=== PATIENT | female | born 1950 ===

== ENCOUNTER → 2016-04-11 | Outpatient (CLI) | payer MEDICARE ==
[~2016-04-11] MED LIST: ACTOPLUS MET 11 EACH PO; ALBUTEROL2.5 MG/31 INH; ALDACTONE25 MG PO; ALIGN4 MG PO; AUGMENTIN500 MG PO; BENTYL10 MG PO; CARAFATE SU100 MG/ML PO; CARAFATE1 GM PO; CELEBREX200 MG PO; CLARITIN D 24HR1 TAB PO; COMPAZINE10 MG PO; CREON 121 CAP PO; DIFLUCAN100 MG PO; DIFLUCAN150 MG PO; FISH OIL 1,0001 EAC1 PO; FLAGYL500 MG PO; FLONASE 50 MCG/16 GM NOSE; HUMULIN R500 UNIT/1 SUB-Q; HYDROCODON-ACE1 EAC4 PO; K-TAB 10MEQ10 MEQ PO; LANTUS (IN100 UNIT/M SUB-Q; LASIX40 MG PO; LEVOTHYROXINE100 MCG PO; LIPITOR80 MG PO; LOPRESSOR25 MG PO; LYRICA 50MG CAP50 MG PO; METFORMIN HCL1000 M1 PO; MUCINEX DM ER1 EAC1 PO; MYCOSTATIN CREA30 GM TOP; NOVOLOG FL100 UNIT/1 SUB-Q; NYSTATIN1 EAC1 TOP; OS-CAL 250 MG+D1 TAB PO; OSCAL + D500 MG PO; PROTONIX40 MG PO; SINGULAIR10 MG PO; SYMBICORT 16010.2 GM INH; TERAZOL TOP; TOUJEO SOL300 UNIT/1 SUB-Q; TRIAMCINOLONE454 GM TOP; TYLENOL325 MG PO; VENTOLIN HFA8 GM INH; VITAMIN B-121000 MCG PO; VITAMIN B-122000 MC1 PO; VITAMIN D-40400 UNIT PO; ZESTRIL2.5 MG PO; ZOFRAN ODT 4 MG4 MG PO; [UNRECOGNIZED DRUG - CODE] PO
== END | disposition disaster alternative care site (69) ==
LOC: GLAB 14:34
DX: R19.7 Diarrhea, unspecified (principal)

== ENCOUNTER 2016-04-18 19:49 | Inpatient (IN) | payer MEDICARE ==
[~2016-04-18] VITALS: Ht 144.8 cm; Wt 135.0 kg
--- NOTE | ~2016-04-18 | HP ---
PATIENT'S NAME: NAV POOL [facility] AGE: 66 Y [address] ROOM: [address] [place], [place] [address] LOCATION: [facility] [place] ADMIT DATE: 04/18/2016 History & Physical DISCHARGE DATE: FAMILY PHYSICIAN: Priscilla Sawant MD ATTENDING PHYSICIAN: Priscilla Sawant DATE OF SERVICE: CHIEF COMPLAINT: "I am weak and has had diarrhea." HISTORY OF PRESENT ILLNESS: Ms. Pool is an extremely complex 66-year-old female with past medical history significant for extremely insulin-resistant diabetes mellitus, type 2; super morbid obesity; chronic pain; and multiple repeat infections including C. difficile, among several others, who presents as an admission to the [facility] from the [facility] Emergency Department for weakness and diarrhea. The patient was in her usual state of health when she began experiencing diarrhea approximately for the last week or so. She had called Dr. Moeller, on-call, last weekend and I had explained the situation to him and he ordered two stool studies. She did bring a sample over, but unfortunately it was outside the time range and which they can run it successfully for C. difficile. Apparently, it was negative at that time. The patient has had continued loose stools. She states it is very similar to when she had C. difficile before. She has also felt progressively more weak. She has been weak for several months, but things has gotten worse over the last week or two. She had a C. difficile episode of which she was hospitalized in October 2015. She just progressively has gotten worse and decided to present to the emergency department for further evaluation and management. Upon reaching the Emergency Department, the patient had a blood pressure of 174/117, pulse 99, respirations 24, temperature 98.0, and oxygen saturation is 98% on room air. She is complaining of pain in the jaw as well as her knee. No real abdominal pain. She did have some cramping at that time. She had a number of tests performed at that time including a chest x-ray which showed vascular congestion likely reflecting interstitial edema as well as chronic fibrotic changes and scarring. She had implant of vascular access catheter and that was about it. She also had a CMS performed that only showed a glucose of 246. Albumin of 3.0, AST that was elevated at 57, and a CBC overall was really unremarkable. Because of her weakness and diarrhea, though she did not have any stools in the emergency department, she was admitted for further evaluation and management. The patient did have an EKG performed as well that showed likely inferior infarct with Q-waves present in III, but otherwise was unremarkable. PATIENT'S NAME: NAV POOL [facility] AGE: 66 Y [address] ROOM: [address] [place] [address] LOCATION: [facility] [place] ADMIT DATE: 04/18/2016 History & Physical DISCHARGE DATE: FAMILY PHYSICIAN: Priscilla Sawant MD ATTENDING PHYSICIAN: Priscilla Sawant Upon my discussion with the patient, she continued to complain of jaw pain. She states it is in the left jaw and had occurred before. She had been worked on by the dentist. It is in her left jaw and has sometimes sensitivity to heat and sometimes sensitivity to cold. It does radiate over into the right side of the jaw. She did have some dental work performed of which she is not certain what it was. Since that time it really has not gotten significantly better. She was put on antibiotics by Dr. Sawant in clinic and has not really had a significant improvement in her overall symptoms. ALLERGIES: THE PATIENT HAS MULTIPLE ALLERGIES INCLUDING PERCOCET, ALOE VERA, LATEX GLOVES, ERYTHROMYCIN, AND TIGECYCLINE. MEDICATION LIST: Please see nursing notes. PAST MEDICAL HISTORY: 1. Diabetes mellitus, type 2, insulin requiring, with high insulin resistance, currently on 100 units of Novolin twice daily as well as metformin. Last hemoglobin A1c in February 2016 was 11.6, and she is currently followed by Gastroenterology. 2. Super morbid obesity with a BMI of 63. 3. Allergic rhinitis. 4. Asthma. 5. Chronic pancreatitis. 6. DVT, 1974. 7. Diverticulitis. 8. Enterocolitis due to C. difficile, 2012 and 2016. 9. Generalized osteoarthritis. 10. Gout. 11. History of adenomatous polyp of the colon. 12. Mixed dyslipidemia. 13. Essential hypertension. 14. Acquired hypothyroidism. 15. Neuropathy secondary diabetes mellitus, type 2. 16. Breast cancer. 17. Obstructive sleep apnea. 18. Primary hyperparathyroidism. 19. Osteopenia. PAST SURGICAL HISTORY: 1. section x3. 2. Cholecystectomy. 3. Colon resection in 2008 for recurrent diverticulitis. PATIENT'S NAME: NAV POOL [facility] AGE: 66 Y [address] ROOM: [address] [place], [place] [address] LOCATION: [facility] [place] ADMIT DATE: 04/18/2016 History & Physical DISCHARGE DATE: FAMILY PHYSICIAN: Priscilla Sawant MD ATTENDING PHYSICIAN: Priscilla Sawant 4. Colonoscopy in 1998, 2005, and 2011. 5. Dilation and curettage. 6. Endometrial ablation, 1997. 7. Hernia repair of ventral hernia in 2011. 8. Hysterectomy, 2004 with bilateral salpingo-oophorectomy. 9. Bilateral mastectomy, 2006. 10. Parathyroidectomy, 2007. 11. Tonsillectomy. SOCIAL HISTORY: The patient lives at home here in [place] with her daughter. She has never been a smoker and does not drink alcohol. However, she did live with a smoker who smoked in the house for at least 10 years. No illicit drugs. She has been since 2006 as her had a traumatic brain injury and from a brain bleed. She has three children. Lives with her daughter, a son- in-law, as well as her grandchildren and they are frequently exposed to respiratory infection. FAMILY HISTORY: Positive for cancer in an aunt and a cousin, and coronary artery disease in father at age 60 with him passing away at age 73 due to heart attack. Mother is still alive and has hypertension. Diabetes runs in the family with her father, maternal grandmother, paternal grandmother, and mother, all having this disease. She also has a sister who has thyroid disease. PHYSICAL EXAMINATION: VITAL SIGNS: Reviewed. GENERAL: A super morbidly obese elderly female, in no acute distress, who is sitting on the hospital chair. HEENT: Head is normocephalic and atraumatic. Eyes, conjunctivae clear. Sclerae white. ENT, mucous membranes are moist. HEART: Regular rate and rhythm without murmurs, rubs, clicks, or gallops. LUNGS: Clear to auscultation bilaterally. CHEST: There is a vascular access port present in the left upper chest. ABDOMEN: Obese, soft, nontender, and nondistended. Bowel sounds are hyperactive. EXTREMITIES: Warm, well perfused without clubbing, cyanosis, or edema. SKIN: Some evidence of irritation in skin folds as patient has multiple. NEUROLOGIC: The patient's cranial nerves 2 through 12 are grossly intact. She has no focal deficits on exam. LABORATORY DATA AND IMAGING STUDIES: Laboratory and X-ray: As per HPI. IMPRESSION AND PLAN: PATIENT'S NAME: NAV POOL [facility] AGE: 66 Y [address] ROOM: [place] [address] LOCATION: [facility] [place] ADMIT DATE: 04/18/2016 History & Physical DISCHARGE DATE: FAMILY PHYSICIAN: Priscilla Sawant MD ATTENDING PHYSICIAN: Priscilla Sawant A 66-year-old female with weakness and diarrhea with a history of Clostridium difficile colitis: 1. Diarrhea. 2. Weakness. The patient has not had a stool here in the hospital yet. However, when she does we will get a Clostridium difficile as well as stool culture, O and P, and if there is a gastrointestinal pathogens panel, we will obtain that as well. The patient states that this is very similar to when she had Clostridium difficile back in 2016, was having significant amounts of stools and then stopping. We will likely need to get her back on a Clostridium difficile regimen plan that would include Flagyl and vancomycin potentially pending the results of her stool panel. Due to her weakness, patient likely will need Home Health as well as possible placement. We will have Physical and Occupational Therapies evaluating her, just to see what kind of need there is. 3. Diabetes mellitus, type 2 with neuropathy, hyperglycemia, and long-term insulin use. The patient is on 100 units b.i.d. of Novolin. We will continue with that here this evening. We will just continue with a sliding scale insulin at this time as we do not want to overlap too much on her insulins. The last A1c was 11.6 in February and she is currently followed by mechanic driver as well. 4. History of asthma, stable. Continue with home medication regimen. 5. Hypothyroidism. Continue with home medication regimen. 6. Osteoarthritis. Continue with Celebrex as well as Lynn. 7. History of multiple skin infections with yeast, continue with fluconazole. 8. Seasonal allergies. Continue with fluticasone. 9. Acquired hypothyroidism. Continue with levothyroxine 100 mcg daily. 10. Essential hypertension, uncontrolled. The patient is on lisinopril 2.5 daily. We will have her potentially increased that to 5 or 10 mg depending on her renal status as well as her blood pressures while in hospital. Continue with Lopressor as well. 11. History of chronic pancreatitis. Continue with pancrelipase as well as Zofran as needed for any nausea. 12. Gastroesophageal reflux disease. Continue with pantoprazole. 13. Hypokalemia, history of. Continue with potassium replacement. 14. Super morbid obesity with a BMI of 63. The patient really would benefit from a diet and more physical activity if possible. 15. Fluids: Normal saline at 100 mL/h x1 L until patient has improved p.o. intake. 16. Electrolytes: Stable. Monitor daily as needed. 17. Nutrition: Diabetic diet. We will advance as the patient is able to tolerate. 18. Code Status: Full code per my discussion with the patient. 19. Prophylaxis. The patient likely will need chemical prophylaxis. We will have PCP to make that determination. PATIENT'S NAME: NAV POOL [facility] AGE: 66 Y [address] ROOM: [place] [address] LOCATION: [facility] [place] ADMIT DATE: 04/18/2016 History & Physical DISCHARGE DATE: FAMILY PHYSICIAN: Priscilla Sawant MD ATTENDING PHYSICIAN: Priscilla Sawant 20. Disposition: The patient will be inpatient at this time. We will have her work with Physical and Occupational Therapies and we will see what the status is of her stools once the pathogens panel has returned. I have spoken to Dr. Sawant, who is aware of this patient and will continue to follow her throughout the course of her hospitalization. MD RORO HAN/corona /[id number] D: [id number] T: [id number] HISTORY & PHYSICAL
--- NOTE | ~2016-04-18 | ER ---
PATIENT'S NAME: NAV POOL [facility] AGE: 66 Y [address] ROOM: [address] [place], [place] [address] LOCATION: [facility] [place] ADMIT DATE: 04/18/2016 ER/Outpatient Report DISCHARGE DATE: FAMILY PHYSICIAN: Priscilla Sawant MD ATTENDING PHYSICIAN: Priscilla Sawant Time of Arrival: 1949 hours. Time of Evaluation: 2015 hours. HISTORY OF PRESENT ILLNESS: This 66-year-old female is in with complaint of diarrhea for the past 2 weeks. It has gotten steadily worse. She states she has gotten progressively weaker over the past 5 or 6 days. She had a fall without injury 3 days ago. She did have significant difficulty getting back up and she states the weakness was so severe tonight that she was unable to get up without assistance. PAST MEDICAL HISTORY: Significant for breast cancer, insulin-dependent diabetes. She has a history of C. difficile colitis last year. REVIEW OF SYSTEMS: She reports that she had recent dental work. She did receive antibiotics related to that. She has been on amoxicillin, this was about 5 days prior to the onset of her current symptoms. She also states that she has had severe jaw pain since then. PHYSICAL EXAMINATION: GENERAL: An alert female, in no acute distress. VITAL SIGNS: Stable. SKIN: Warm and dry. Color is normal. HEAD, EARS, EYES, NOSE, AND THROAT: Revealed submandibular lymphadenopathy on the left, that was moderately tender. There is no trismus. NECK: Supple. HEART: Had a regular rate and rhythm without murmur. LUNGS: Clear. Breath sounds are equal. ABDOMEN: Soft, slightly distended. Bowel sounds are present. There is no localized tenderness. EXTREMITIES: Normal. NEUROLOGIC: Normal. EMERGENCY DEPARTMENT COURSE: Since the patient had bilateral mastectomy, we were unable to start peripheral IVs in her arms. She had a port that was not functioning. I placed a central line in the right subclavian. She had had a port in that area. She had some difficulty placing a central line under ultrasound guidance and the radiograph PATIENT'S NAME: NAV POOL [facility] AGE: 66 Y [address] ROOM: [address] [place], [place] [address] LOCATION: [facility] [place] ADMIT DATE: 04/18/2016 ER/Outpatient Report DISCHARGE DATE: FAMILY PHYSICIAN: Priscilla Sawant MD ATTENDING PHYSICIAN: Priscilla Sawant to confirm placement revealed that the central line actually went upstream into her neck. Samples had been obtained from that central line. So, we were able to get some blood work. Attempted to reposition the line without success. I attempted a second central line under fluoroscopic guidance. However, the wire would not advance into her chest, but was redirected presumably by scar tissue up into her internal jugular traveling distally up into her neck, so this was aborted. ASSESSMENT: 1. Diarrhea. 2. Volume depletion. 3. Generalized weakness. 4. Probable Clostridium difficile colitis. PLAN: Admit for IV fluids, physical therapy, further workup for her colitis. We will attempt to restore her port using either heparin or a tPA protocol. LEODAN CHAMPAGNE MD JDB/modl /[id number] d: 04/20/16 0527 t: 05/18/16 0955, OUTPATIENT REPORT
--- NOTE | ~2016-04-18 | HP ---
PATIENT'S NAME: NAV POOL [facility] AGE: 66 Y [address] ROOM: [address] [place] [address] [place] [facility] [place] DATE: 04/19/2016 History & Physical DISCHARGE DATE: FAMILY PHYSICIAN: Priscilla Sawant MD ATTENDING PHYSICIAN: Priscilla Sawant DATE OF SERVICE: COMPLAINT: Right knee pain. HISTORY: This 66-year-old female has had knee pain off and on for several months. It has been worse in the last few weeks. She is currently in the hospital, being treated for C. diff GI disorder. She came in complaining of diarrhea and weakness. She is getting a little better. She denies fevers, chills. She did have an injury to the knee. A month or so ago, she has a mild fall that made it a little worse. She has never had surgery on the knee. The knee does not catch or lock. The pain is medial, it is dull and achy, worse with activity, relieved by rest. Tylenol helps. It limits her walking. Stairs make it worse. ALLERGIES: PERCOCET, ALOE VERA, LATEX, ERYTHROMYCIN, AND TIGECYCLINE. MEDICATIONS: 1. Aldactone. 2. Align. 3. Carafate. 4. Celebrex. 5. Claritin. 6. Creon 12. 7. Diflucan. 8. Dulera. 9. K-Tab. 10. Levothyroxine. 11. Lipitor. 12. Lopressor. 13. NovoLog insulin. 14. Os-Alejo. 15. Protonix. 16. Singulair. MEDICAL HISTORY: 1. Type 2 diabetes, requiring insulin. PATIENT'S NAME: NAV POOL [facility] AGE: 66 Y [address] ROOM: [address] [place], [place] [address] [place] [facility] [place] DATE: 04/19/2016 History & Physical DISCHARGE DATE: FAMILY PHYSICIAN: Priscilla Sawant MD ATTENDING PHYSICIAN: Priscilla Sawant 2. Morbid obesity, BMI of 63. 3. Allergic rhinitis. 4. Asthma. 5. Chronic pancreatitis. 6. History of DVT. 7. Diverticulitis. 8. Enterocolitis. 9. Generalized osteoarthritis. 10. Gout. 11. Adenomatous polyp. 12. Mixed dyslipidemia. 13. Essential hypertension. 14. Hypothyroidism. 15. Neuropathy, secondary to diabetes. 16. Breast cancer. 17. Obstructive sleep apnea. 18. Primary hyperparathyroidism. 19. Osteopenia. SURGICAL HISTORY: , cholecystectomy, colon resection, colonoscopy, D and C, endometrial ablation, herniorrhaphy, hysterectomy, bilateral mastectomy, parathyroidectomy, and tonsillectomy. SOCIAL HISTORY: Lives at home with her daughter. No history of smoking or alcohol use. FAMILY HISTORY: Positive for cancer, coronary artery disease, and hypertension. Diabetes in the family. REVIEW OF SYSTEMS: Positive for diarrhea and weakness. No fevers or chills. No chest pain or shortness of breath. No dysuria or hematuria. Morbid obesity. No auditory or visual hallucinations. No skin changes or rashes. PHYSICAL EXAMINATION: GENERAL: She is morbidly obese with a BMI of 63. She is alert and oriented x3. Mood and affect appropriate. HEENT: Atraumatic and normocephalic. PERRL. EOMI. TMs clear. Throat clear. NECK: Supple. CHEST: Clear to auscultation. HEART: Regular rhythm. ABDOMEN: Morbidly obese, soft, mild tenderness, active bowel sounds. PATIENT'S NAME: NAV POOL [facility] AGE: 66 Y [address] ROOM: [address] [address] [place] [facility] [place]: 04/19/2016 History & Physical DISCHARGE DATE: FAMILY PHYSICIAN: Priscilla Sawant MD ATTENDING PHYSICIAN: Priscilla Sawant EXTREMITIES: Full range of motion in shoulders, hips, knees, and elbows. Right knee has mild tenderness. No warmth, redness, or effusion. Drawer and Tyler's negative. No collateral laxity. Range is 0-130 degrees, limited by adipose tissue. She ambulates with a limp. Leg length is equal. Pelvis level. Knee alignment is satisfactory. Spine is nontender. NEUROLOGIC: Intact. Pulses good. Reflexes equal. Sensation and motor function intact in the lower and upper extremities. X-RAYS: AP and lateral right knee show small osteophytes and loss of joint space. DIAGNOSIS: Degenerative arthritis, right knee. No fractures. IMPRESSION: 1. Degenerative arthritis, right knee. 2. Morbid obesity, BMI 63. 3. Clostridium difficile. 4. Diabetes mellitus type 2 with neuropathy, on insulin. 5. History of asthma. 6. Hypothyroidism. 7. Osteoarthritis, diffuse. 8. Multiple skin infections with yeast. 9. Acquired hypothyroidism. 10. Essential hypertension. 11. Chronic pancreatitis. 12. Gastroesophageal reflux. 13. Hypokalemia. PLAN: Inject right knee with steroid. Procedure: Risks and benefits discussed. Time-out was performed. Consent was signed. Right knee was injected through an anteromedial approach into the patellofemoral joint with 2-1/2 inch needle, 80 mg Depo-Medrol and 5 mL lidocaine. We discussed this would raise her blood sugars temporarily, she may need more insulin. She was given exercises for all extremities. Weight- bear as tolerated. We will follow her along. LENNY MC MD MOLLY/corona PATIENT'S NAME: NAV POOL [facility] AGE: 66 Y [address] ROOM: [place] [address] [place] [facility] [place] DATE: 04/19/2016 History & Physical DISCHARGE DATE: FAMILY PHYSICIAN: Priscilla Sawant MD ATTENDING PHYSICIAN: Priscilla Sawant /[id number] CC: Priscilla Sawant MD D: [id number] T: [id number] HISTORY & PHYSICAL
--- NOTE | ~2016-04-18 | DS ---
PATIENT'S NAME: NAV POOL [facility] AGE: 66 Y [address] ROOM: [address] [place], [place] [address] [place] [facility] [place] DATE: 04/19/2016 Discharge Summary DISCHARGE DATE: 04/23/2016 FAMILY PHYSICIAN: Priscilla Sawant MD ATTENDING PHYSICIAN: Priscilla Sawant PRINCIPAL DIAGNOSES: 1. Weakness, failure to thrive. 2. Diarrhea due to metformin. 3. Adult-onset diabetes. 4. Morbid obesity. 5. Degenerative joint disease, right knee and TMJs. 6. Hypertension. 7. Hemoccult-positive stool. 8. Adenomatous polyps. 9. Dyslipidemia. 10. Prior history of breast cancer with status post bilateral mastectomy. 11. Essential hypertension. 12. Hypothyroidism. 13. Peripheral neuropathy. 14. Obstructive sleep apnea. 15. Osteopenia. 16. History of primary hyperparathyroidism. 17. Allergic rhinitis. 18. Asthma. SUMMARY: Nav is admitted on 04/18/[address] Huerta, see his H and P. She has had recurrent problems with diarrhea, weakness, and has a history of C. difficile. Testing revealed no evidence of C. difficile. She was admitted and worked up for her diffuse weakness. She was admitted as an inpatient. She was placed on a sliding scale insulin. Her home medications were continued except for the metformin was discontinued as well as the JOSE inhibitor due to the weakness and diarrhea. A workup was performed. Stool culture showed no C. difficile. No enteric pathogens. GI consult was performed. She had Hemoccult-positive stool and underwent colonoscopy, which did show a polyp, but no cancerous lesions or precancerous lesions. Physical therapy, occupational therapy, and speech therapy were working with her to improve her strength. Vitals were watched closely. Dr. Velez was consulted regarding her right knee pain. X-ray revealed degenerative change, and she did receive a steroid shot into the knee joint proper, which did help her pain. Care management worked with the family extensively. They are hoping to get her into a halfway for further rehabilitation; however, she does not have a secondary insurance, and none of the halfway did accept her. Arrangements at that point were made for Home Health to continue PT, OT, speech therapy and as well as to get an aide as she is having marked PATIENT'S NAME: NAV POOL [facility] AGE: 66 Y [address] ROOM: [address] [place], [place] [address] [place] [facility] [place]: 04/19/2016 Discharge Summary DISCHARGE DATE: 04/23/2016 FAMILY PHYSICIAN: Priscilla Sawant MD ATTENDING PHYSICIAN: Priscilla Sawant difficulty caring for herself. DISMISSAL: Nav is dismissed on 04/23/2016 in improved condition. DISMISSAL MEDICATIONS: She will not be on metformin or lisinopril at this point. Her other medications will be continued to include: 1. Calcium plus vitamin D 1 daily. 2. Lipitor 80 mg daily. 3. Align 4 mg daily. 4. Celebrex 200 mg daily. 5. Vitamin D 1000 International Units b.i.d. 6. B12 a 1000 mcg daily. 7. Diflucan 150 mg weekly. 8. Mycostatin cream topically b.i.d. p.r.n. 9. Insulin U-500 100 units twice daily. 10. Levothyroxine 100 mcg daily. 11. Claritin-D 1 tablet daily. 12. Metoprolol 25 mg b.i.d., which is a stronger dose. 13. Singulair 10 mg daily. 14. Protonix 40 mg daily. 15. Potassium 10 mEq q.i.d. 16. Spironolactone 25 mg b.i.d. 17. Lasix 40 mg daily. 18. Carafate 1000 mg q.i.d. 19. Oldhams 5/325 one tab q.6 hours p.r.n. pain. 20. Zofran 4 mg q.4 hours p.r.n. nausea. 21. Pancrelipase one capsule with snacks and 3 capsules with meals. 22. Symbicort 2 puffs b.i.d. 23. Triamcinolone cream b.i.d. p.r.n. 24. Ventolin HFA p.r.n. 25. Albuterol neb treatments p.r.n. 26. Nystatin cream b.i.d. 27. Flonase 2 squirts each naris daily. 28. Terazol 7 cream daily. 29. Tylenol 650 q.4 hours p.r.n. pain. FOLLOWUP: She will follow up with me Wednesday on 05/04/2016 and will follow up with Dr. Velez on 05/01/2016. PROGNOSIS: Fair. I have discussed increasing activity and weight loss as a prime goal. PATIENT'S NAME: NAV POOL [facility] AGE: 66 Y [address] ROOM: [place] [address] [place] [facility] [place] DATE: 04/19/2016 Discharge Summary DISCHARGE DATE: 04/23/2016 FAMILY PHYSICIAN: Priscilla Sawant MD ATTENDING PHYSICIAN: Priscilla Sawant MD MARY HUGHESE/modl /[id number] d: 05/10/16 0204 t: 05/12/16 0943, DISCHARGE SUMMARY
--- NOTE | ~2016-04-18 | CON ---
PATIENT'S NAME: NAV POOL [facility] AGE: 66 Y [address] [place] [facility] [place] [id number] [place]: [facility] [place] AD[place] DATE: 04/19/2016 Consultation DISCHARGE DATE: FAMILY PHYSICIAN: Priscilla Sawant MD ATTENDING PHYSICIAN: Priscilla Sawant DATE OF CONSULTATION: 04/22/2016 REFERRING PHYSICIAN: Jalen Nugent MD HISTORY OF PRESENT ILLNESS: Nav Pool is a 66-year-old female with history of multiple comorbidities including morbid obesity, diabetes mellitus, previous C. difficile colitis, multiple abdominal surgeries, and was admitted in view of a change in bowel habits with increasing diarrhea and weakness. In view of previous history of C. difficile colitis, there was concern about recurrence and the patient was admitted. Further questioning reveals she has had intermittent change in bowel habits with constipation, diarrhea alternating, however, more on the looser side lately. Her C. difficile toxin was ordered and was negative. At the present time, she is feeling fine. Denies any abdominal pain. Denies nausea, vomiting, or fevers. She has had a history of colon polyps; partial colon resection, I believe left- sided; and Hemoccult-positive stools and therefore, I was asked to see her in regard to performing a colonoscopy. PAST MEDICAL HISTORY: As noted above. PAST SURGICAL HISTORY: 1. x3. 2. Cholecystectomy. 3. Left colectomy. 4. Hernia repair. MEDICATIONS: As noted in her records. SOCIAL HISTORY: Negative for smoking or alcohol use. FAMILY HISTORY: None for GI cancers. PATIENT'S NAME: NAV POOL [facility] AGE: 66 Y [address] ROOM: [address] [address] LOCATION: [facility] [place]MIT DATE: 04/19/2016 Consultation DISCHARGE DATE: FAMILY PHYSICIAN: Priscilla Sawant MD ATTENDING PHYSICIAN: Priscilla Sawant REVIEW OF SYSTEMS: A 10-point review of systems is otherwise negative. PHYSICAL EXAMINATION: GENERAL: The patient is awake, alert, appropriate. VITAL SIGNS: Stable. HEENT: Normocephalic and atraumatic. Pupils round and reactive. Nonicteric sclerae. NECK: Supple without palpable nodes. CHEST: Clear to auscultation. HEART: S1, S2 normal. ABDOMEN: Obese with multiple scars, without any palpable tenderness. Bowel sounds are present. EXTREMITIES: Without edema. NEUROLOGIC: Awake, alert, appropriate without any focal deficits. LABORATORY DATA: CBC reveals a well-preserved hemoglobin at 13.0. Stool culture is negative. Hemoccult positive. ASSESSMENT AND PLAN: A 66-year-old female with multiple comorbidities and Hemoccult-positive stool, with previous history of colon polyps. Culture and C. difficile toxin are being negative. The patient is agreeable to proceeding with colonoscopy in view of Hemoccult-positive stools and previous history of colon polyps. I explained to her the procedure including the possible risks, complications, as well as the fact that it may be technically challenging in view of her body habitus as well as multiple abdominal surgeries. Thank you for this consult. KASEY CAT MD AM/corona /[id number] d: 04/22/16 2219 t: 04/24/16 1452, CONSULTATION REPORT
[~2016-04-18 19:49] MED LIST changes: -HUMULIN R500 UNIT/1 SUB-Q
[2016-04-18 22:02] LABS: BASOPHIL % 0.5 %; EOSINOPHIL # 0.3 K/uL (0.0-0.5); EOSINOPHIL % 3.8 %; HEMATOCRIT 40.4 % (33.0-46.0); HEMOGLOBIN 12.6 g/dL (10.0-15.0); IMMATURE GRANULOCYTE % 0.5 %; LYMPHOCYTE # 1.3 K/uL (0.8-4.0); LYMPHOCYTE % 18.9 %; MCHC 31.2 gm/dL (32.0-36.5); MCV 83.5 fl (83.0-98.0); MONOCYTE # 0.5 K/uL (0.0-1.0); MONOCYTE % 7.6 %; MPV 10.2 fl (9.4-12.4); NEUTROPHIL # (ANC) 4.6 K/uL (1.8-7.8); NEUTROPHIL % 68.7 %; NRBC % 0 /100WBC (0-0.00); PLATELET COUNT 215 K/uL (150-450); RBC 4.84 M/uL (3.50-5.50); RDW-CV 15.2 % (11.9-14.6); WBC 6.6 K/uL (4.0-11.0)
[2016-04-18 22:22] LABS: ALK PHOS 74 IU/L (33-138); ALT 43 IU/L (12-78); ANION GAP 13.9 (10.0-19.0); AST 57 IU/L (10-40); BLOOD UREA NITROGEN 13 mg/dL (6-24); CALCIUM 8.8 mg/dL (8.5-10.5); CHLORIDE 106 mMol/L (96-110); CO2 25 mMol/L (22-32); CREATININE 0.7 mg/dL (0.5-1.1); ESTIMATED GFR (MDRD EQUATION) > 60; POTASSIUM 3.9 mMol/L (3.7-5.1); SODIUM 141 mMol/L (135-145); TOTAL BILIRUBIN 0.5 mg/dL (0.0-1.5); TOTAL PROTEIN 6.6 g/dL (6.0-8.4)
[2016-04-19] MEDS ORDERED: HUMULIN R500 UNIT/1 SUB-Q (04:15)
[2016-04-19 12:36] LABS: BASOPHIL % 0.7 %; EOSINOPHIL # 0.2 K/uL (0.0-0.5); EOSINOPHIL % 4.1 %; HEMATOCRIT 39.5 % (33.0-46.0); HEMOGLOBIN 12.7 g/dL (10.0-15.0); IMMATURE GRANULOCYTE % 0.2 %; LYMPHOCYTE # 1.2 K/uL (0.8-4.0); LYMPHOCYTE % 22.7 %; MCH 26.7 pg (27.0-34.0); MCHC 32.2 gm/dL (32.0-36.5); MCV 83.2 fl (83.0-98.0); MONOCYTE # 0.5 K/uL (0.0-1.0); MONOCYTE % 9.9 %; MPV 9.8 fl (9.4-12.4); NEUTROPHIL # (ANC) 3.4 K/uL (1.8-7.8); NEUTROPHIL % 62.4 %; NRBC % 0 /100WBC (0-0.00); PLATELET COUNT 211 K/uL (150-450); RBC 4.75 M/uL (3.50-5.50); WBC 5.4 K/uL (4.0-11.0)
[2016-04-19 12:51] LABS: ALBUMIN 3.1 gm/dL (3.5-5.0); ALK PHOS 68 IU/L (33-138); ALT 44 IU/L (12-78); ANION GAP 15.9 (10.0-19.0); AST 56 IU/L (10-40); BLOOD UREA NITROGEN 10 mg/dL (6-24); CALCIUM 8.7 mg/dL (8.5-10.5); CHLORIDE 104 mMol/L (96-110); CO2 25 mMol/L (22-32); CREATININE 0.7 mg/dL (0.5-1.1); ESTIMATED GFR (MDRD EQUATION) > 60; POTASSIUM 3.9 mMol/L (3.7-5.1); SODIUM 141 mMol/L (135-145); TOTAL BILIRUBIN 0.6 mg/dL (0.0-1.5); TOTAL PROTEIN 6.6 g/dL (6.0-8.4)
[2016-04-19 13:05] LABS: ADENOVIRUS F 40/41 Not Detected (Not Detect); ASTROVIRUS Not Detected (Not Detect); C DIFFICILE TOXIN A/B Not Detected (Not Detect); CAMPYLOBACTER SPECIES Not Detected (Not Detect); CRYPTOSPORIDIUM Not Detected (Not Detect); CYCLOSPORA CAYETANENSIS Not Detected (Not Detect); E. COLI (EPEC) Not Detected (Not Detect); E. COLI (ETEC) Not Detected (Not Detect); E. COLI (STEC) Not Detected (Not Detect); E. COLI 0157 Not Detected (Not Detect); ENTAMOEBA HISTOLYTICA Not Detected (Not Detect); GIARDIA LAMBLIA Not Detected (Not Detect); NOROVIRUS GI/ GII Not Detected (Not Detect); PLESIOMONAS SPECIES Not Detected (Not Detect); ROTAVIRUS A Not Detected (Not Detect); SALMONELLA SPECIES Not Detected (Not Detect); SAPOVIRUS Not Detected (Not Detect); SHIGELLA AND EIEC Not Detected (Not Detect); VIBRIO CHOLERAE Not Detected (Not Detect); VIBRIO SPECIES Not Detected (Not Detect); YERSINIA ENTEROCOLITICA Not Detected (Not Detect)
[2016-04-22 10:48] LABS: BASOPHIL % 0.4 %; EOSINOPHIL # 0.1 K/uL (0.0-0.5); EOSINOPHIL % 0.7 %; HEMATOCRIT 40.7 % (33.0-46.0); IMMATURE GRANULOCYTE # 0.1 K/uL (0.0-0.3); IMMATURE GRANULOCYTE % 0.5 %; LYMPHOCYTE % 20.1 %; MCH 26.5 pg (27.0-34.0); MCHC 31.9 gm/dL (32.0-36.5); MCV 83.1 fl (83.0-98.0); MONOCYTE # 0.7 K/uL (0.0-1.0); MONOCYTE % 7.3 %; NEUTROPHIL # (ANC) 7.1 K/uL (1.8-7.8); NRBC % 0 /100WBC (0-0.00); PLATELET COUNT 253 K/uL (150-450); RDW-CV 15.4 % (11.9-14.6)
[2016-04-22 11:08] LABS: ALBUMIN 3.2 gm/dL (3.5-5.0); ALK PHOS 72 IU/L (33-138); ALT 43 IU/L (12-78); ANION GAP 8.9 (10.0-19.0); AST 53 IU/L (10-40); BLOOD UREA NITROGEN 19 mg/dL (6-24); CALCIUM 9.4 mg/dL (8.5-10.5); CHLORIDE 107 mMol/L (96-110); CO2 30 mMol/L (22-32); CREATININE 0.7 mg/dL (0.5-1.1); ESTIMATED GFR (MDRD EQUATION) > 60; POTASSIUM 3.9 mMol/L (3.7-5.1); SODIUM 142 mMol/L (135-145); TOTAL BILIRUBIN 0.5 mg/dL (0.0-1.5); TOTAL PROTEIN 6.8 g/dL (6.0-8.4)
== END 2016-04-23 18:30 | disposition home health service (06) | DRG 948 ==
LOC: GMED 19:49 → GMSU 23:33
PROVIDERS: Emergency Medicine; Family Medicine; ADMIT Family Medicine
DX: R53.1 Weakness (principal); E11.40 Type 2 diabetes mellitus with diabetic neuropathy, unspecified; Z68.44 Body mass index [BMI] 60.0-69.9, adult; E11.65 Type 2 diabetes mellitus with hyperglycemia; K86.1 Other chronic pancreatitis; R19.7 Diarrhea, unspecified; E66.01 Morbid (severe) obesity due to excess calories; Z79.4 Long term (current) use of insulin; J45.909 Unspecified asthma, uncomplicated; Z86.718 Personal history of other venous thrombosis and embolism; M10.9 Gout, unspecified; E78.5 Hyperlipidemia, unspecified; I10 Essential (primary) hypertension; E03.9 Hypothyroidism, unspecified; Z85.3 Personal history of malignant neoplasm of breast; G47.33 Obstructive sleep apnea (adult) (pediatric); M19.90 Unspecified osteoarthritis, unspecified site; E87.6 Hypokalemia; K21.9 Gastro-esophageal reflux disease without esophagitis; M17.11 Unilateral primary osteoarthritis, right knee; D12.5 Benign neoplasm of sigmoid colon; K62.1 Rectal polyp; T38.3X5A Adverse effect of insulin and oral hypoglycemic [antidiabetic] drugs, initial encounter; R68.84 Jaw pain; R19.5 Other fecal abnormalities
CPT/HCPCS: C1751; C1894; G0378; J1040; J1170; J1642; J2997; J7030; J7121

== ENCOUNTER → 2016-04-18 | Outpatient (CLI) | payer MEDICARE | END | disposition disaster alternative care site (69) | LOC: GAMB 19:29 | DX: R53.1 Weakness (principal); R19.7 Diarrhea, unspecified; E11.9 Type 2 diabetes mellitus without complications; E03.9 Hypothyroidism, unspecified; E78.5 Hyperlipidemia, unspecified; I27.2 Other secondary pulmonary hypertension; C50.919 Malignant neoplasm of unspecified site of unspecified female breast; Z79.4 Long term (current) use of insulin; Z79.52 Long term (current) use of systemic steroids; Z79.899 Other long term (current) drug therapy; Z88.1 Allergy status to other antibiotic agents; Z88.8 Allergy status to other drugs, medicaments and biological substances | CPT/HCPCS: A0425; A0429 ==